=== PATIENT | female | born 1980 | race Caucasian/White ===

== ENCOUNTER 2022-04-25 09:10 | Emergency (ER) | payer SELFPAY ==
[2022-04-25 09:18] VITALS: BP 96/62; PULSE 107; RESP 12; TEMP 36.7; O2SAT 99; BMI 31.3
--- NOTE | 2022-04-25 09:25 | XRR_ITS ---
PROCEDURE INFORMATION: Exam: XR Chest Exam date and time: 04/25/2022 9:49 AM Age: 41 years old Clinical indication: Cough and fever; Additional info: Fever and cough TECHNIQUE: Imaging protocol: Radiologic exam of the chest. Views: 1 view. COMPARISON: No relevant prior studies available. FINDINGS: Lungs: No focal airspace disease. Pleural spaces: Unremarkable. No pleural effusion. No pneumothorax. Heart/Mediastinum: Cardiomediastinal silhouette is within normal limits. Bones/joints: Unremarkable. XR/XR chest 1V portable [id number] IMPRESSION: No acute cardiopulmonary abnormality.
--- NOTE | 2022-04-25 09:26 | W.ED.FEVER ---
HPI - Fever General: Chief Complaint: Fever Stated Complaint: fever Time Seen by Provider: 04/25/22 09:14 History of Present Illness: Patient is a 41-year-old female comes to the ED with fever. Patient states she has had a dry cough, body aches and headache. Symptoms started 4 days ago. Associated symptoms: Deny abdominal pain, flank pain, chills, chest pain, diarrhea, dysuria, headache(s), nasal congestion, nausea or vomiting Review of Systems Const: Reports: fever(s) and body aches; Denies: chills or fatigue Eyes: Denies: change in vision or eye discomfort ENMT: Denies: throat pain, odynophagia, nasal discharge or nasal congestion Card: Denies: chest pain, palpitations, edema, swelling of feet/ankles, dyspnea on exertion or orthopnea Resp: Reports: non-productive cough; Denies: dyspnea or productive cough GI: Denies: abdominal pain, nausea, vomiting, diarrhea, constipation or hematochezia : Denies: flank pain, dysuria or hematuria Musc: Denies: neck pain, back pain or extremity swelling Skin/Breast: Denies: rash or new lesions Neuro: Denies: headache(s), numbness in extremities or weakness in extremities PFS ED PFSH: Medical History (Updated 04/26/22 @ 07:28 by MARIO Torrez) No pertinent family history Surgical History (Updated 04/26/22 @ 07:28 by MARIO Torrez) No pertinent past surgical history Physical Exam Const: COMMON NORMALS: no acute distress, patient oriented x3 and alert GENERAL APPEARANCE: cooperative and comfortable HENMT: COMMON NORMALS: normocephalic HEAD & SCALP: normocephalic MOUTH: Normal oral and palatal mucosa present THROAT: posterior oropharynx normal and uvula midline Neck/C-Spine: COMMON NORMALS: supple GENERAL: Yes normal visual inspection Resp: COMMON NORMALS: normal respiratory effort, No retractions, No use of accessory muscles and clear to auscultation bilaterally AUSCULTATION: clear to auscultation bilaterally Cardio: COMMON NORMALS: regular rate, regular rhythm, S1 normal heart sound present, S2 normal heart sound present, No gallops present (Cardio), No clicks present (Cardio), No murmurs present (Cardio) and Peripheral pulses 2+ throughout RATE: regular rate RHYTHM: regular rhythm HEART SOUNDS: S1 normal heart sound present and S2 normal heart sound present PERIPHERAL PULSES: Peripheral pulses 2+ throughout GI: COMMON NORMALS: Normal to inspection, nondistended, normoactive bowel sounds present, Soft to palpation, non-tender and no masses PALPATION: Yes Soft to palpation : COMMON NORMALS: Yes no CVA tenderness BLADDER/KIDNEY EXAM: Yes no CVA tenderness Back/Pelvis: COMMON NORMALS: no CVA tenderness Extremity: COMMON NORMALS: normal to inspection Neuro: COMMON NORMALS: patient oriented x3 SENSORIUM/ORIENTATION: Yes alert GAIT: Yes Normal gait present Skin: GENERAL SKIN EXAM: dry skin Course Vital Signs: Vital signs: Vital Signs Temperature 98.1 F 04/25/22 09:18 Pulse Rate 103 H 04/25/22 10:21 Respiratory Rate 18 04/25/22 10:21 Blood Pressure 96/62 04/25/22 09:18 Pulse Oximetry 99 04/25/22 10:21 Oxygen Delivery Me thod 04/25/22 09:18 MDM - Fever Medical Decision Making Patient is a 41-year-old female comes to the ED with viral syndrome symptoms. Vitals are stable. Exam of patient is benign. Chest x-ray shows no acute findings. Influenza and COVID were both negative. Patient was diagnosed with a viral upper respiratory infection with a cough and discharged home. Follow-up with PCP within the next week for reevaluation. Return to ED precautions given. Patient understood and agreed with plan. Lab Data I reviewed the patient's lab results. Radiology Impressions Chest X-Ray 04/25/22 09:25 IMPRESSION: No acute cardiopulmonary abnormality. Laboratory Results Influenza Type A Ag negative (Negative) 04/25/22 09:35 Influenza Type B Ag negative (Negative) 04/25/22 09:35 SARS-CoV-2 Ag (Rapid) negative (Negative) 04/25/22 09:35 Discharge Plan Discharge Patient Disposition: Home Clinical Impression: Viral URI with cough Condition: Stable Prescriptions: New Medrol (Alessandro) 4 mg tablets,dose pack See Rx Instructions .ROUTE .COMPLEX Qty: 21 0RF Rx Instructions: orally per package directions No Action ibuprofen 200 mg Capsule 400 mg PO Q6H PRN (Reason: Pain) acetaminophen 325 mg Capsule 650 mg PO QID PRN (Reason: Pain) Discharge Orders: Discharge ED (Routine); Ordered 04/25/22 Ordered By: David Warren Referrals: Dann Salcedo MD [Primary Care Provider] - Discharge Diet: Regular Discharge Activity: Increase activity as tolerated Patient Instructions: Upper Respiratory Infection (ED) Activity Restrictions/Additional Instructions: Follow-up with medical provider as directed in the next 7-10 days for reevaluation. Take medications as prescribed. Return to the ER or your medical provider if condition worsens. Please read and understand discharge instructions. Thank you for choosing [facility] for your healthcare needs today. Please realize this is an emergency room and that we are providing you with a medical screening exam and this may not be complete and all inclusive of all the testing and or work up that you may need to determine your ailment or severity of your illness. It is very important that you follow up as instructed or that you return to the Emergency Department should you have concerns or if your condition changes or worsens in any way. Coding Level of Care Code ED Flight Crew Scheduler for Catherine Fwd Exam Comprehensive
[2022-04-25 09:58] LABS: Influenza A by IFA negative (Negative); Influenza B by IFA negative (Negative); SARS Covid-2 Antigen negative (Negative)
[2022-04-25 10:21] VITALS: PULSE 103; RESP 18; O2SAT 99
== END 2022-04-25 10:22 | disposition home or self-care (01) ==
PROVIDERS: Emergency Provider Physician Assistant; PCP Family Medicine
DX: J06.9 Acute upper respiratory infection, unspecified (principal); Z20.822 Contact with and (suspected) exposure to COVID-19
CPT/HCPCS: 71045; 87426; 87804; 99283